=== PATIENT | female | born 1945 | race Caucasian/White ===

== ENCOUNTER 2021-03-20 07:38 | Day surgery (SDC) | payer MEDICARE, BC ==
[~2021-03-20] VITALS: Ht 165.1 cm; Wt 73.3 kg
[~2021-03-20 07:38] MED LIST: HYDROCHLOROTH12.5 MG PO
[2021-03-20] MEDS ORDERED: CHLORHEXIDINE 15 ML UDC ONE (08:14)
[2021-03-20] MEDS ORDERED: CHLORHEXIDINE 15 ML UDC PO ONE (08:30)
[2021-03-20] MEDS ORDERED: LACTATED RINGERS 1,000 ML IV SCH (08:30)
[2021-03-20] MEDS ORDERED: CEFOTETAN PMX 2GM/50ML 50 ML IVPB ONE (08:30)
[2021-03-20] MEDS ORDERED: POTASSIUM CHLORIDE 40 MEQ in SODIUM CHLORIDE 0.9% 500 ML IV ONE (09:00)
[2021-03-20] MEDS ORDERED: FENTANYL PF 250 MCG/5ML ONE ×2 (12:10→13:53)
[2021-03-20] MEDS ORDERED: SODIUM CHLORIDE 0.9% PF 10ML ONE (12:11)
[2021-03-20] MEDS ORDERED: GLYCOPYRROLATE 0.2MG/1ML, 5ML ONE (12:12)
[2021-03-20] MEDS ORDERED: DEXAMETHASONE 4 MG/ML, 1ML ONE (12:12)
[2021-03-20] MEDS ORDERED: ONDANSETRON 2MG/ML, 2ML ONE (12:12)
[2021-03-20] MEDS ORDERED: PROPOFOL 10 MG/ML, 20ML ONE (12:12)
[2021-03-20] MEDS ORDERED: ROCURONIUM 10MG/ML,5ML ONE (12:12)
[2021-03-20] MEDS ORDERED: NEOSTIGMINE 1 MG/ML, 10ML ONE (12:12)
[2021-03-20] MEDS ORDERED: BUPIVACAINE/PF 0.25% ONE (12:45)
[2021-03-20] MEDS ORDERED: INDOCYANINE GREEN 25 MG VIAL ONE (12:45)
[2021-03-20] MEDS ORDERED: HEPARIN 1,000 UNITS/ML, 10ML ONE (12:45)
[2021-03-20 12:56] VITALS: BP 134/88
[2021-03-20] MEDS ORDERED: HYDROmorphone 1 MG/ML, 1ML INJ IVPush PRN (13:00)
[2021-03-20] MEDS ORDERED: morphine SULFATE 10 MG/ML, 1ML IVPush PRN (13:00)
[2021-03-20] MEDS ORDERED: ACETAMINOPHEN 325 MG TABLET PO PRN (13:00)
[2021-03-20] MEDS ORDERED: hydrALAzine 20 MG/ML, 1ML IV PRN (13:00)
[2021-03-20] MEDS ORDERED: OXYcodone 5 MG/5 ML ORAL.SOL UDC PO PRN (13:00)
[2021-03-20] MEDS ORDERED: FENTANYL PF 100 MCG/2ML IV PRN (13:00)
[2021-03-20] MEDS ORDERED: LABETALOL 5MG/ML, 20ML IV PRN (13:00)
[2021-03-20] MEDS ORDERED: MEPERIDINE/PF 25MG/0.5ML IVPush PRN (13:00)
[2021-03-20] MEDS ORDERED: PROMETHAZINE 25 MG/ML, 1ML IVPush PRN (13:00)
[2021-03-20] MEDS ORDERED: HALOPERIDOL 5 MG/ML IV PRN (13:00)
[2021-03-20] MEDS ORDERED: FENTANYL PF 100 MCG/2ML ONE ×3 (15:02→17:05)
[2021-03-20] MEDS ORDERED: OXYcodone 5 MG/5 ML ORAL.SOL UDC ONE (17:05)
== END 2021-03-20 19:50 | disposition home or self-care (01) ==
LOC: ORIP 07:38 → UNDOADMIN 07:38 → OUT 07:38 → UNDODISIN 19:50 → OUT 19:50
PROVIDERS: ATTEND Obstetrics & Gynecology
DX: C54.1 Malignant neoplasm of endometrium (principal); C78.00 Secondary malignant neoplasm of unspecified lung; N73.6 Female pelvic peritoneal adhesions (postinfective); N93.9 Abnormal uterine and vaginal bleeding, unspecified; N83.202 Unspecified ovarian cyst, left side; N83.201 Unspecified ovarian cyst, right side; I10 Essential (primary) hypertension; K21.9 Gastro-esophageal reflux disease without esophagitis; Z79.899 Other long term (current) drug therapy; Z87.891 Personal history of nicotine dependence
CPT/HCPCS: 36415; 58552; 86850; 86900; 86923; 88309; 88342; 88360; J1100; J2405; J2704; J2710; J3010; J3480; J7040; J7120; S2900; J1644